=== PATIENT | female | born 1990 | race Caucasian/White ===

== ENCOUNTER 2016-11-05 12:48 | Emergency (ER) | payer SELFPAY ==
[2016-11-05] MEDS ORDERED: KETOROLAC 30 MG/ML 1 ML VIAL IVP STA (13:31)
[2016-11-05] MEDS ORDERED: diphenhydrAMINE 50 MG/ML 1 ML VIAL IVP STA (13:31)
[2016-11-05] MEDS ORDERED: METOCLOPRAMIDE 5 MG/ML 2 ML VIAL IVP STA (13:31)
--- NOTE | 2016-11-05 13:57 | ED ---
Headache HPI - General Chief Complaint: Headache Stated Complaint: Headache Time Seen by Provider: 11/05/16 13:22 Source: RN notes reviewed Mode of arrival: ambulatory Limitations: no limitations - History of Present Illness Initial Comments: 26-year-old female presents to emergency Department chief complaint of right- sided migraine. Patient states that she's been having this headache for about 10 days. Patient missed a long history of migraine she states she's been worked up multiple times for migraines. Patient states that she takes a migraine medications. Patient states this when this will not go away. Patient status/psychiatric: Anxious constant. Patient Localizes the Right Side of the Head. Patient States He Just in Vision Any Changes in Hearing. Patient States She Has Had Some Nausea Vomiting. Patient denies any sensitivity to light or sound. Patient states she was concerned due to the continued headache so she thought that she should be evaluated.Patient denies any recent fever, chills, shortness of breath, chest pain, back pain, abdominal pain, nausea vomiting, numbness or tingling, dysuria or hematuria, constipation or diarrhea, visual changes, or any other current symptoms. - Related Data Home Medications Medication Instructions Recorded Confirmed No Known Home Medications [No 11/22/15 11/05/16 Known Home Medications] Allergies Allergy/AdvReac Type Severity Reaction Status Date / Time No Known Allergies Allergy Verified 11/05/16 14:08 Review of Systems ROS Statement: Those systems with pertinent positive or pertinent negative responses have been documented in the HPI. ROS Other: All systems not noted in ROS Statement are negative. Past Medical History Past Medical History: No Reported History, Cancer Additional Past Medical History / Comment(s): cervical cancer History of Any Multi-Drug Resistant Organisms: None Reported Past Surgical History: Orthopedic Surgery, Tubal Ligation Past Psychological History: No Psychological Hx Reported Smoking Status: Never smoker Past Alcohol Use History: Occasional Past Drug Use History: None Reported General Exam - General Exam Comments Initial Comments: General: The patient is awake and alert, in no distress, and does not appear acutely ill. Eye: Pupils are equal, round and reactive to light, extra-ocular movements are intact; there is normal conjunctiva bilaterally. No signs of icterus. Ears, nose, mouth and throat: There are moist mucous membranes. Neck: The neck is supple, there is no tenderness. Cardiovascular: There is a regular rate and rhythm. No murmur, rub or gallop is appreciated. Respiratory: Lungs are clear to auscultation, respirations are non-labored, breath sounds are equal. No wheezes, stridor, rales, or rhonchi. Gastrointestinal: Soft, non-distended, non-tender abdomen without masses or organomegaly noted. There is no rebound or guarding present. No CVA tenderness. Bowel sounds are unremarkable. Back: There is no tenderness to palpation in the midline. There is no obvious deformity. No rashes noted. Musculoskeletal: Normal ROM, no tenderness, There is no pedal edema. There is no calf tenderness or swelling. Sensation intact. Pulses equal bilaterally 2+. Neurological: CN II-XII intact, There are no obvious motor or sensory deficits. Coordination appears grossly intact. Speech is normal. Skin: Skin is warm and dry and no rashes or lesions are noted. Psychiatric: Cooperative, appropriate mood & affect, normal judgment. Limitations: no limitations Course Vital Signs 11/05/16 11/05/16 13:01 14:26 Temperature 97.9 F Pulse Rate 100 92 Respiratory 20 18 Rate Blood Pressure 131/66 112/59 O2 Sat by Pulse 100 99 Oximetry Medical Decision Making - Medical Decision Making 26-year-old female presents emergency Department chief complaint of right-sided headache. This time patient states her headache has completely resolved. This time she states she suddenly 100% better. Patient states it is like her normal headache she's been worked up further multiple times in the past. This and the patient will be discharged home. Discussed continue to return parameters and follow-up. Patient stated she understood all questions were answered. She'll be discharged. Disposition Clinical Impression: Headache Disposition: HOME SELF-CARE Condition: Stable Instructions: Acute Headache (ED) Additional Instructions: Please use medication as discussed. Please follow up with family doctor if symptoms have not improved over the next two days. Please return to the emergency room if your symptoms increase or worsen or for any other concerns. Referrals: Ramone Carreon MD [Primary Care Provider] - 1-2 days Time of Disposition: 14:51
[2016-11-05 15:16] VITALS: BP 103/53; PULSE 93; RESP 16; TEMP 97.4
== END 2016-11-05 15:18 | disposition home or self-care (01) ==
LOC: EC 12:48
DX: R51 Headache (principal); F41.9 Anxiety disorder, unspecified; R11.2 Nausea with vomiting, unspecified; Z86.69 Personal history of other diseases of the nervous system and sense organs
CPT/HCPCS: 99283; 96374; 96375 ×2; J1200; J2765; J1885

== ENCOUNTER → 2017-06-19 | Outpatient (CLI) | payer OTHER | END | disposition home or self-care (01) | LOC: LABWHC1 08:38 | PROVIDERS: ATTEND Internal Medicine Nephrology | DX: Z00.5 Encounter for examination of potential donor of organ and tissue (principal) | CPT/HCPCS: 36415 ==

== ENCOUNTER 2018-03-21 20:33 | Emergency (ER) | payer OTHER ==
[2018-03-21 21:02] VITALS: BP 110/69; PULSE 80; RESP 18; TEMP 98.5
[2018-03-21] MEDS ORDERED: PENICILLIN VK 500MG STARTER 4 TAB BTL PO STA (21:55)
--- NOTE | 2018-03-21 21:56 | ED ---
General Adult HPI - General Chief complaint: Dental/Oral Stated complaint: Dental Pain Time Seen by Provider: 03/21/18 21:40 Source: patient, RN notes reviewed Mode of arrival: ambulatory Limitations: no limitations - History of Present Illness Initial comments: Patient 27-year-old female presented to the emergency room today with chief complaint of dental abscess. She does admit that she felt some discomfort late last night. She states she was at work all day today that swelling was getting worse. She does admit to pain left lower jawline. States feels similar to a dental abscesses she's had in the past. Denies any drainage or foul taste. - Related Data Previous Rx's Medication Instructions Recorded Penicillin V Potassium [Pen Vee K] 500 mg PO QID #40 tablet 03/21/18 Allergies Allergy/AdvReac Type Severity Reaction Status Date / Time No Known Allergies Allergy Verified 03/21/18 21:02 Review of Systems ROS Statement: Those systems with pertinent positive or pertinent negative responses have been documented in the HPI. ROS Other: All systems not noted in ROS Statement are negative. Past Medical History Past Medical History: No Reported History, Cancer Additional Past Medical History / Comment(s): cervical cancer History of Any Multi-Drug Resistant Organisms: None Reported Past Surgical History: Orthopedic Surgery, Tubal Ligation Past Psychological History: No Psychological Hx Reported Smoking Status: Never smoker Past Alcohol Use History: Occasional Past Drug Use History: None Reported General Exam - General Exam Comments Initial Comments: General: The patient is awake and alert, in no distress, and does not appear acutely ill. Eye: extra-ocular movements are intact. No nystagmus. There is normal conjunctiva bilaterally. No signs of icterus. Ears, nose, mouth and throat: There are moist mucous membranes and no oral lesions. Moderate swelling left side of the lower jawline. No fluctuant area. No sign of abscess orally to drain. Uvula midline. Patient's also difficulty. Tender to palpation in the gumline over tooth #19 and 20. Neck: The neck is supple. Musculoskeletal: Normal ROM, no tenderness. Strength 5/5. Sensation intact. Pulses equal bilaterally 2+. Neurological: A&O x 3. CN II-XII intact, There are no obvious motor or sensory deficits. Coordination appears grossly intact. Speech is normal. Skin: Skin is warm and dry and no rashes or lesions are noted. Psychiatric: Cooperative, appropriate mood & affect, normal judgment. Limitations: no limitations Course Vital Signs 03/21/18 21:00 Temperature 98.5 F Pulse Rate 80 Respiratory 18 Rate Blood Pressure 110/69 O2 Sat by Pulse 100 Oximetry Disposition Clinical Impression: Dental abscess Disposition: HOME SELF-CARE Condition: Good Instructions: Dental Abscess (ED) Additional Instructions: Please follow-up with dentist and use antibiotic and pain medication as discussed. [facility] [address] [address] [phone]) (existing clients only) For new clients: [phone] [facility] Pay $50 for x-rays and the rest discovered [phone] Prescriptions: Penicillin V Potassium [Pen Vee K] 500 mg PO QID #40 tablet Is patient prescribed a controlled substance at d/c from ED?: No Referrals: Ramone Carreon MD [Primary Care Provider] - 1-2 days Time of Disposition: 21:55
== END 2018-03-21 22:10 | disposition home or self-care (01) ==
LOC: EC 20:33
DX: K04.7 Periapical abscess without sinus (principal); Z85.41 Personal history of malignant neoplasm of cervix uteri; Z98.51 Tubal ligation status; Z98.890 Other specified postprocedural states
CPT/HCPCS: 99282

== ENCOUNTER → 2019-04-12 | Outpatient (CLI) | payer OTHER ==
[2019-04-12 19:08] LABS: T4, Free (Free Thyroxine) 0.9 ng/dL (0.80-1.80)
== END | disposition home or self-care (01) ==
LOC: LABWHC1 12:36
PROVIDERS: ATTEND Nurse Practitioner
DX: E03.9 Hypothyroidism, unspecified (principal)
CPT/HCPCS: 36415; 84439; 84443

== ENCOUNTER → 2019-10-15 | Outpatient (CLI) | payer OTHER ==
--- NOTE | 2019-10-18 08:41 | MM ---
Reason for exam: clinical finding. Physical Findings: Nurse did not find any significant physical abnormalities on exam. [facility] Diagnostic Mammo w CAD ROGER Bilateral CC and MLO view(s) were taken. The breast tissue is heterogeneously dense. This may lower the sensitivity of mammography. No suspicious abnormality. These results were verbally communicated with the patient and result sheet given to the patient on 10/15/19. ASSESSMENT: Negative, BI-RAD 1 RECOMMENDATION: Routine screening mammogram of both breasts at age 39.
--- NOTE | 2019-10-18 08:42 | USB ---
Reason for exam: clinical finding. US Breast BILAT Technologist: Alaina Ortez Right complete breast ultrasound includes all four quadrants, the retroareolar region and axilla. Finding demonstrates no cystic or solid lesion seen. Left complete breast ultrasound includes all four quadrants, the retroareolar region and axilla. Finding demonstrates no cystic or solid lesion seen. Dense tissue noted throughout. These results were verbally communicated with the patient and result sheet given to the patient on 10/15/19. ASSESSMENT: Negative, BI-RAD 1 RECOMMENDATION: Routine screening mammogram of both breasts at age 39. (or sooner if clinically indicated) Manage patient on a clinical basis.
== END | disposition home or self-care (01) ==
LOC: RADMAMWWP 13:39
PROVIDERS: ATTEND Internal Medicine
DX: N63.10 Unspecified lump in the right breast, unspecified quadrant (principal); N63.20 Unspecified lump in the left breast, unspecified quadrant; N64.4 Mastodynia
CPT/HCPCS: 77066

== ENCOUNTER → 2021-10-10 | Outpatient (CLI) | payer OTHER ==
--- NOTE | 2021-10-11 06:53 | MR ---
EXAMINATION TYPE: MR pelvis wo/w con DATE OF EXAM: 10/10/2021 COMPARISON: HISTORY: Urinary retention, evaluate for urethral mass. CONTRAST: Standard multiplanar, multisequence MRI departmental protocol images were obtained without contrast a nd with 6 mL intravenous Gadavist gadolinium contrast. Uterus is retroverted. The cul-de-sac is clear fluid. There is fairly uniform wall thickening of the entire urinary bladder. Wall measures up to almost 1 c m. There is no evidence of rectal mass. The sacrum and coccyx appear intact. There is no evidence of endometrial mass. There is some thickening of the floor of the pelvis at the base of the urinary blad foreign consistent with urethral thickening. No discrete urethral mass seen. There is no adnexal mass. Th ere are follicular cysts on both ovaries. IMPRESSION: Urinary bladder wall thickening suggestive of some nonspecific cystitis. Normal uterus. There is thic kening and enhancement of the urethra at the base of the urinary bladder suggestive of urethritis. Th is measures 2 cm in diameter.
== END | disposition home or self-care (01) ==
LOC: RADMRIMAIN 14:31
PROVIDERS: ATTEND Urology
DX: N36.8 Other specified disorders of urethra (principal)
CPT/HCPCS: 72197; A9585

== ENCOUNTER → 2022-01-18 | Outpatient (CLI) | payer OTHER ==
--- NOTE | 2022-01-18 22:08 | MR ---
EXAMINATION TYPE: MR pelvis wo/w con DATE OF EXAM: 01/18/2022 COMPARISON: MR pelvis 10/11/2021 CLINICAL INDICATION:Female, 31 years old with history of N36.8 OTHER SPECIFIED DISORDERS OF URETHRA; TECHNIQUE: Triplane multisequence imaging was performed of the pelvis. Then the patient was given c ontrast/gadolinium, 6 cc of Gadavist and multiple post contrast sequences where obtained in three iram esau. FINDINGS: Reproductive: Vagina: Unremarkable. Uterus: The uterus is retroverted in position. Uterus measures 10.6 x 5.1 x 5.3 cm. The endometrium a nd junctional zone are within normal limits. There is an arcuate uterine morphology to the fundus. Ovaries: Multiple peripheral follicular changes are seen bilaterally greater than 20 bilaterally. Bladder: Demonstration of circumferentially thickened bladder wall measuring up to 10 mm which is not significantly changed from prior. The urinary bladder mucosa has decreased in thickness most notably the dome comparing to prior. The bladder neck/trigone again appears thickened with enhancement. There is a decrease in the ill-defined enhancement seen on prior imaging on 10/10/2021 involving the s ubmucosa and adjacent longitudinal muscles. There is persistent enhancement within the mucosa in the urethra with minimal remaining ill-defined adjacent enhancement of the submucosa. No evidence of uret hral obstructive pathology. Bowel: Unremarkable as visualized. Peritoneum: A small amount of free fluid in the pelvis, presumably physiologic. No evidence of merlyn nopathy. Vasculature: Unremarkable. Abdominal wall/soft tissues: Unremarkable. Musculoskeletal: Bone marrow signal is within normal signal intensity. IMPRESSION: 1. Redemonstration of circumferentially thickened urinary bladder which is partially distended again suggesting a component of cystitis. No evidence of urethral obstructive pathology. 2. Interval decrease in periurethral submucosa enhancement with persistent areas of inflammation sugg ested. No evidence of mass. 3. Decrease in mucosal thickening of the bladder mucosa throughout majority of the bladder. However, the bladder neck mucosa appears similarly thickened with enhancement. 4. Polycystic ovarian morphology, correlate for polycystic ovarian syndrome.
== END | disposition home or self-care (01) ==
LOC: RADMRIMAIN 18:58
PROVIDERS: ATTEND Urology
DX: N36.8 Other specified disorders of urethra (principal)
CPT/HCPCS: 72197; A9585